=== PATIENT | male | born 1965 | race Caucasian/White ===

== ENCOUNTER 2018-01-16 10:19 | Emergency (ER) | payer OTHER ==
[~2018-01-16] VITALS: Ht 170.2 cm; Wt 95.0 kg
[2018-01-16 10:26] VITALS: BP 161/71; PULSE 71; RESP 18; TEMP 97.4; O2SAT 99
[2018-01-16] MEDS ORDERED: ASPI81CH6 CHEW (10:42)
[2018-01-16] MEDS ORDERED: OMEP20TA93 PO (10:42)
[2018-01-16] MEDS ORDERED: FINA5TAB2 PO (10:42)
[2018-01-16] MEDS ORDERED: FENO145T2 PO (10:42)
[2018-01-16] MEDS ORDERED: ATOR40TA16 PO (10:42)
[2018-01-16] MEDS ORDERED: CIAL5TAB PO (10:42)
[2018-01-16] MEDS ORDERED: ONDANSETRON HCL 4 MG/2 ML VIAL IV PUSH ONE (10:45)
[2018-01-16] MEDS ORDERED: KETOROLAC TROMETHAMINE 30 MG/ML (IVP) VIAL IV PUSH ONE (10:45)
[2018-01-16] MEDS ORDERED: SODIUM CHLOR 0.9% 1000 ML INJ 1,000 ML IV ONE (10:45)
[2018-01-16] MEDS ORDERED: HYDROmorphone HCL PF 2 MG/ML VIAL IV PUSH ONE (10:45)
--- NOTE | 2018-01-16 10:49 | PD ---
HPI Chief Complaint: Flank/Kidney Pain Time Seen by Provider: 10:38 Travel History International Travel<30 days: No Contact w/Intl Traveler<30days: No Traveled to known affect area: No History of Present Illness HPI This 52-year-old male is complaining of left flank pain. He says the pain started this morning. Is originally in the left midabdomen and is moved into the flank. The pain is quite severe. He got sweaty with the pain and has been nauseated. He had a kidney stone about 6 years ago and said the pain is somewhat similar. He has no history of abdominal surgery. He did notice some blood in his urine a couple of days ago. Patient states that he has an enlarged prostate and has had recurrent urinary tract infections. PFSH Past Medical History High Cholesterol: Yes GERD: Yes Influenza Vaccination: Yes ?: Not Social History Alcohol Use: No Tobacco Use: No Substance Use: No Allergies-Medications (Allergen,Severity, Reaction): Coded Allergies: No Known Allergies (Verified Allergy, Unknown, 01/16/18) Reported Meds & Prescriptions Reported Meds & Active Scripts Active Reported Finasteride 5 Mg Tab 5 Mg PO DAILY Do not crush. Aspirin Low Dose (Aspirin) 81 Mg Chew 81 Mg CHEW DAILY Omeprazole 20 Mg Tab 20 Mg PO DAILY Cialis (Tadalafil) 5 Mg Tab 5 Mg PO HS Do not exceed 1 dose/day. Atorvastatin (Atorvastatin Calcium) 40 Mg Tab 40 Mg PO HS Fenofibrate 145 Mg Tab 145 Mg PO DAILY Review of Systems Except as stated in HPI: all other systems reviewed are Neg General / Constitutional: No: Fever, Chills Eyes: No: Diploplia, Blurred Vision HENT: No: Headaches, Vertigo Cardiovascular: No: Chest Pain or Discomfort, Palpitations Respiratory: No: Cough, Shortness of Breath Gastrointestinal: Positive: Nausea, Abdominal Pain, No: Vomiting Genitourinary: Positive: Hematuria, Flank Pain Skin: No Rash Neurologic: No: Weakness, Dizziness Endocrine: No: Heat Intolerance, Cold Intolerance Hematologic/Lymphatic: No: Easy Bruising Physical Exam Narrative GENERAL: Well-developed male SKIN: Focused skin assessment warm/dry. HEAD: Atraumatic. Normocephalic. EYES: Pupils equal and round. No scleral icterus. No injection or drainage. ENT: No nasal bleeding or discharge. Mucous membranes pink and moist. NECK: Trachea midline. No JVD. CARDIOVASCULAR: Regular rate and rhythm. No murmur appreciated. RESPIRATORY: No accessory muscle use. Clear to auscultation. Breath sounds equal bilaterally. GASTROINTESTINAL: Abdomen soft, non-tender, nondistended. Hepatic and splenic margins not palpable. There is some left CVA tenderness MUSCULOSKELETAL: No obvious deformities. No clubbing. No cyanosis. No edema. NEUROLOGICAL: Awake and alert. No obvious cranial nerve deficits. Motor grossly within normal limits. Normal speech. PSYCHIATRIC: Appropriate mood and affect; insight and judgment normal. Data Data Last Documented VS Vital Signs Date Time Temp Pulse Resp B/P (MAP) Pulse Ox O2 Delivery O2 Flow Rate FiO2 01/16/18 11:55 91 18 136/71 (92) 97 01/16/18 11:06 Room Air 01/16/18 10:26 97.4 Orders Orders Complete Blood Count With Diff (01/16/18 10:42) Basic Metabolic Panel (Bmp) (01/16/18 10:42) Urinalysis - C+S If Indicated (01/16/18 10:42) Sodium Chlor 0.9% 1000 Ml Inj (Ns 1000 M (01/16/18 10:45) Ketorolac Inj (Toradol Inj) (01/16/18 10:45) Ondansetron Inj (Zofran Inj) (01/16/18 10:45) Hydromorphone Pf Inj (Dilaudid Pf Inj) (01/16/18 10:45) Ct Abd/Pel W/O Iv Contrast (01/16/18 11:13) Hydromorphone Pf Inj (Dilaudid Pf Inj) (01/16/18 11:15) Urine Culture (01/16/18 10:48) Ceftriaxone Inj (Rocephin Inj) (01/16/18 11:45) Labs Laboratory Tests Test 01/16/18 10:48 01/16/18 10:58 Urine Collection Type CLEAN CATCH Urine Color STRAW Urine Turbidity SL CLOUDY Urine pH 6.0 Urine Specific [place] 1.020 Urine Protein NEG mg/dL Urine Glucose (UA) NEG mg/dL Urine Ketones NEG mg/dL Urine Occult Blood TRACE Urine Nitrite POS Urine Bilirubin NEG Urine Urobilinogen 0.2 MG/DL Urine Leukocyte Esterase MOD Urine WBC 50-99 /hpf Urine WBC Clumps MOD Urine Squamous Epithelial Cells 0-5 /hpf Urine Bacteria MANY /hpf Microscopic Urinalysis Comment CULTURE INDICATED White Blood Count 15.1 TH/MM3 Red Blood Count 4.72 MIL/MM3 Hemoglobin 14.3 GM/DL Hematocrit 42.7 % Mean Corpuscular Volume 90.4 FL Mean Corpuscular Hemoglobin 30.3 PG Mean Corpuscular Hemoglobin Concent 33.5 % Red Cell Distribution Width 13.1 % Platelet Count 436 TH/MM3 Mean Platelet Volume 7.9 FL Neutrophils (%) (Auto) 80.9 % Lymphocytes (%) (Auto) 10.9 % Monocytes (%) (Auto) 7.4 % Eosinophils (%) (Auto) 0.5 % Basophils (%) (Auto) 0.3 % Neutrophils # (Auto) 12.3 TH/MM3 Lymphocytes # (Auto) 1.6 TH/MM3 Monocytes # (Auto) 1.1 TH/MM3 Eosinophils # (Auto) 0.1 TH/MM3 Basophils # (Auto) 0.0 TH/MM3 CBC Comment AUTO DIFF Blood Urea Nitrogen 16 MG/DL Creatinine 1.50 MG/DL Random Glucose 139 MG/DL Calcium Level 9.3 MG/DL Sodium Level 137 MEQ/L Potassium Level 4.1 MEQ/L Chloride Level 104 MEQ/L Carbon Dioxide Level 24.2 MEQ/L Anion Gap 9 MEQ/L Estimat Glomerular Filtration Rate 50 ML/MIN MDM Medical Decision Making Medical Screen Exam Complete: Yes Emergency Medical Condition: Yes Medical Record Reviewed: Yes Differential Diagnosis Differential includes pyelonephritis, musculoskeletal pain, renal colic Narrative Course White count is 15,000. CT scan of the abdomen and pelvis shows hydronephrosis of the left collecting system. There is a 1 mm stone in the left UPJ causing hydronephrosis. Urinalysis shows 50-99 white cells. There is a's 8 mm stone on the left side of the bladder which I suspect may have been the stone causing him pain. On returning from CT the patient reports much improvement in his pain. Diagnosis Primary Impression: Renal colic on left side Additional Impression: UTI (urinary tract infection) Scripts Oxycodone-Acetaminophen (Percocet) 10-325 mg Tab 1 TAB PO Q4H Y for PAIN, #12 TAB 0 Refills Prov: Amando Segundo MD 01/16/18 Sulfamethoxazole-Trimethoprim (Bactrim DS) 800-160 Mg Tab 1 TAB PO BID for Infection, #20 TAB 0 Refills Prov: Amando Segundo MD 01/16/18 Disposition: 01 DISCHARGE HOME Condition: Stable Amando Segundo MD Jan 16, 2018 10:49
[2018-01-16 11:04] LABS: BILIRUBIN, URINE NEG (NEG); BLOOD, URINE TRACE (NEG); GLUCOSE,URINE NEG (NEG); KETONE, URINE NEG (NEG); NITRITE,URINE POS (NEG); URINE LEUKOCYTE ESTERASE MOD (NEG)
[2018-01-16 11:06] VITALS: BP 183/100; PULSE 80; RESP 18; O2SAT 100
[2018-01-16 11:06] LABS: URINE COLOR STRAW (YELLW/STRAW)
[2018-01-16] MEDS ORDERED: HYDROmorphone HCL PF 1 MG/ML VIAL IV PUSH ONE (11:15)
[2018-01-16 11:20] LABS: AUTOMATED NEUTROPHIL # 12.3 TH/MM3 (1.8-7.7); BASOPHIL % 0.3 % (0.0-2.0); EOSINOPHIL # 0.1 TH/MM3 (0-0.4); EOSINOPHIL % 0.5 % (0.0-4.0); HEMATOCRIT 42.7 % (39.0-51.0); HEMOGLOBIN 14.3 GM/DL (13.0-17.0); LYMPH % 10.9 % (9.0-44.0); LYMPHOCYTE # 1.6 TH/MM3 (1.0-4.8); MEAN CELL VOLUME 90.4 FL (80.0-100.0); MEAN CORPUSCULAR HEMOGLOBIN 30.3 PG (27.0-34.0); MEAN CORPUSCULAR HGB CONC 33.5 % (32.0-36.0); MEAN PLATELET VOLUME 7.9 FL (7.0-11.0); MONO % 7.4 % (0.0-8.0); MONOCYTE # 1.1 TH/MM3 (0-0.9); NEUT % 80.9 % (16.0-70.0); PLATELET COUNT 436 TH/MM3 (150-450); RED BLOOD COUNT 4.72 MIL/MM3 (4.50-5.90); RED CELL DISTRIBUTION WIDTH 13.1 % (11.6-17.2); WHITE BLOOD COUNT 15.1 TH/MM3 (4.0-11.0)
[2018-01-16 11:21] LABS: SQUAMOUS EPITHELIAL CELL URINE 0-5 /hpf (0-5); WHITE BLOOD CELL CLUMPS MOD
[2018-01-16 11:22] LABS: BACTERIA, URINE MANY /hpf
[2018-01-16 11:36] LABS: CALCIUM 9.3 MG/DL (8.5-10.1)
[2018-01-16 11:37] LABS: BICARBONATE 24.2 MEQ/L (21.0-32.0)
[2018-01-16 11:40] LABS: CREATININE 1.5 MG/DL (0.60-1.30)
[2018-01-16] MEDS ORDERED: cefTRIAXone INJ 2,000 MG in SODIUM CHLORIDE 0.9% INJ 100 ML IV ONE (11:45)
[2018-01-16 11:55] VITALS: BP 136/71; PULSE 91; RESP 18; O2SAT 97
--- NOTE | 2018-01-16 11:55 | RADRPT ---
EXAM DATE/TIME: 01/16/2018 11:33 [facility] COMPARISON: No previous studies available for comparison. INDICATIONS : Left flank pain. ORAL CONTRAST: No oral contrast ingested. RADIATION DOSE: 23.23 CTDIvol (mGy) MEDICAL HISTORY : Hypercholesterolemia. Gastroesophageal reflux disease. SURGICAL HISTORY : None. ENCOUNTER: Initial ACUITY: 2 days PAIN SCALE: 5/10 LOCATION: Left flank TECHNIQUE: Volumetric scanning of the abdomen and pelvis was performed. Using automated exposure control and ad justment of the mA and/or kV according to patient size, radiation dose was kept as low as reasonably achievable to obtain optimal diagnostic quality images. DICOM format image data is available electro nically for review and comparison. The lack of IV contrast limits the diagnosis for certain organ pa thology. FINDINGS: LOWER LUNGS: The visualized lower lungs are clear. LIVER: Homogeneous density without lesion. There is diffuse fatty infiltration throughout the liver. There is no dilation of the biliary tree. No calcified gallstones. SPLEEN: Normal size without lesion. PANCREAS: Within normal limits. KIDNEYS: Normal in size and shape. . There are bilateral calcified renal stones. There is a stone measuring 1. 1 cm in the lower pole the right kidney not causing obstruction. There is a stone measuring 7 mm in t he lower pole of the left kidney not causing obstruction. There is hydronephrosis of the left kidney with a tiny 1 mm stone at the left UPJ. No right sided hydronephrosis. The ureters are nondilated. ADRENAL GLANDS: Within normal limits. VASCULAR: There is no aortic aneurysm. BOWEL/MESENTERY: The stomach, small bowel, and colon demonstrate no acute abnormality. There is no free intraperitone al air or fluid. Scattered diverticulosis of the descending and sigmoid colon without inflammatory ch anges. ABDOMINAL WALL: Within normal limits. RETROPERITONEUM: There is no lymphadenopathy. BLADDER: No wall thickening or mass. There is a stone in the base of the urinary bladder on the left side tho uring 8 mm. REPRODUCTIVE: The prostate gland measures 5.3 cm. INGUINAL: There is no lymphadenopathy or hernia. MUSCULOSKELETAL: Within normal limits for patient age. CONCLUSION: 1. There is hydronephrosis of the left collecting system. There is a 1 mm stone in the left UPJ causi ng hydronephrosis. 2. There are bilateral nonobstructing kidney stones in the lower pole of both kidneys. 3. There is an 8 mm stone in the urinary bladder on the left side. 4. Diffuse enlargement of the prostate gland. 5. Scattered diverticulosis of the descending and sigmoid colon. 6. Diffuse fatty infiltration of the liver. Aidan Tran MD on January 16, 2018 at 11:47 Board Certified Radiologist. This report was verified electronically.
[2018-01-16] MEDS ORDERED: PERC10TA27 PO (12:09)
[2018-01-16] MEDS ORDERED: BACT800T5 PO (12:09)
[2018-01-16 12:32] VITALS: BP 135/83; PULSE 89; RESP 16; O2SAT 98
== END 2018-01-16 12:58 | disposition home or self-care (01) ==
LOC: PHED 10:19
DX: N13.2 Hydronephrosis with renal and ureteral calculous obstruction (principal); N39.0 Urinary tract infection, site not specified; D72.829 Elevated white blood cell count, unspecified; B96.20 Unspecified Escherichia coli [E. coli] as the cause of diseases classified elsewhere; N40.0 Benign prostatic hyperplasia without lower urinary tract symptoms; K21.9 Gastro-esophageal reflux disease without esophagitis; E78.00 Pure hypercholesterolemia, unspecified; Z87.442 Personal history of urinary calculi; Z87.440 Personal history of urinary (tract) infections
CPT/HCPCS: 74176; 80048; 81001; 85025; 87077; 87086; 87186; 96361; 96365; 96375; 99285; J0696; J1170; J1885; J2405; J7030

== ENCOUNTER 2018-04-14 20:26 | Inpatient (IN) | payer OTHER ==
[~2018-04-14] VITALS: Ht 170.2 cm; Wt 89.8 kg
[~2018-04-14 20:26] MED LIST: ASPI81CH6 CHEW; ATOR40TA16 PO; BACT800T5 PO; CIAL5TAB PO; FENO145T2 PO; FINA5TAB2 PO; OMEP20TA93 PO; PERC10TA27 PO
[2018-04-14 20:32] VITALS: BP 141/71; PULSE 121; RESP 22; TEMP 103.1; O2SAT 95
[2018-04-14 20:51] VITALS: O2SAT 98
[2018-04-14] MEDS ORDERED: ACETAMINOPHEN 500 MG CPLT PO ONE (21:00)
[2018-04-14] MEDS: SODIUM CHLOR 0.9% 1000 ML INJ 1,000 ML IV SCH ×2 (21:06→21:26)
[2018-04-14 21:11] LABS: CHLORIDE 110 MEQ/L (98-107); SODIUM (NA) 141 MEQ/L (136-145)
[2018-04-14 21:12] LABS: HEMOGLOBIN 12.3 GM/DL (13.0-17.0); MEAN CELL VOLUME 89.7 FL (80.0-100.0); MEAN CORPUSCULAR HEMOGLOBIN 31.5 PG (27.0-34.0); MEAN CORPUSCULAR HGB CONC 35.1 % (32.0-36.0); MEAN PLATELET VOLUME 9.1 FL (7.0-11.0); PLATELET COUNT 282 TH/MM3 (150-450); RED CELL DISTRIBUTION WIDTH 12.6 % (11.6-17.2); WHITE BLOOD COUNT 9.6 TH/MM3 (4.0-11.0)
[2018-04-14 21:14] LABS: CALCIUM 7.7 MG/DL (8.5-10.1)
[2018-04-14 21:15] LABS: ALBUMIN 2.6 GM/DL (3.4-5.0); BICARBONATE 20.1 MEQ/L (21.0-32.0); BLOOD UREA NITROGEN 28 MG/DL (7-18); GLUCOSE,RANDOM 147 MG/DL (74-106)
[2018-04-14 21:18] LABS: ALT (GPT) 36 U/L (12-78); AST (GOT) 33 U/L (15-37); GLOMERULAR FILTRATION RATE 40 ML/MIN (>89)
[2018-04-14 21:20] LABS: TOTAL BILIRUBIN ADULT 0.4 MG/DL (0.2-1.0); TOTAL PROTEIN 6.4 GM/DL (6.4-8.2)
[2018-04-14 21:21] LABS: ALKALINE PHOSPHATASE 64 U/L (45-117)
--- NOTE | 2018-04-14 21:47 | RADRPT ---
EXAM DATE: 04/14/2018 9:25 PM EDT AGE/SEX: 52 years / Male INDICATIONS: Fever. Weakness. CLINICAL DATA: This is the patient's initial encounter. Patient reports that signs and symptoms have been present for 4 - 6 days and indicates a pain score of 5/10. MEDICAL/SURGICAL HISTORY: None. None. COMPARISON: No prior exams available for comparison. FINDINGS: PA and lateral views of the chest demonstrate the lungs to be symmetrically aerated without evidence of mass, infiltrate or effusion. The cardiomediastinal contours are unremarkable. Osseous structures are intact. CONCLUSION: No active disease. Calcified granulomata in both lungs. Electronically signed by: Sulaiman Houston MD 04/14/2018 9:45 PM EDT
[2018-04-14 21:48] LABS: TROPONIN I LESS THAN 0.02 NG/ML (0.02-0.05)
[2018-04-14 21:49] VITALS: BP 93/60; PULSE 99; RESP 18; TEMP 100.7; O2SAT 96
--- NOTE | 2018-04-14 21:49 | PD ---
HPI Chief Complaint: Fever Time Seen by Provider: 20:56 Travel History International Travel<30 days: No Contact w/Intl Traveler<30days: No Traveled to known affect area: No History of Present Illness HPI The patient is a 52-year-old male who complains of fevers, shakes, chills, lightheadedness without vertigo since last night. The patient states he has a feeling of needles on his chest. He denies any cough or shortness of breath. He denies any diarrhea. He denies any nausea or vomiting. He does have a sore throat. He denies any syncopal or near syncopal spells. PFSH Past Medical History High Cholesterol: Yes GERD: Yes Tetanus Vaccination: < 5 Years Influenza Vaccination: Yes Social History Alcohol Use: No Tobacco Use: No Substance Use: No Allergies-Medications (Allergen,Severity, Reaction): Coded Allergies: No Known Allergies (Verified Allergy, Unknown, 04/14/18) Reported Meds & Prescriptions Reported Meds & Active Scripts Active Reported Finasteride 5 Mg Tab 5 Mg PO DAILY Do not crush. Aspirin Low Dose (Aspirin) 81 Mg Chew 81 Mg CHEW DAILY Cialis (Tadalafil) 5 Mg Tab 5 Mg PO HS Do not exceed 1 dose/day. Atorvastatin (Atorvastatin Calcium) 40 Mg Tab 40 Mg PO HS Fenofibrate 145 Mg Tab 145 Mg PO DAILY Review of Systems Except as stated in HPI: all other systems reviewed are Neg Physical Exam Narrative GENERAL: The patient is alert, oriented 3 in no respiratory distress. His vital signs show temperature 103.1, heart rate 121, respirations 22 with blood pressure 141/71 and oximetry 95%. SKIN: Focused skin assessment warm/dry. HEAD: Atraumatic. Normocephalic. EYES: Pupils equal and round. No scleral icterus. No injection or drainage. ENT: No nasal bleeding or discharge. Mucous membranes pink and moist. The throat is clear without erythema, exudate or abscess. Tympanic membranes are clear. NECK: Trachea midline. No JVD. There is no meningismus present. CARDIOVASCULAR: Regular rate and sinus tachycardia rhythm. No murmur appreciated. RESPIRATORY: No accessory muscle use. Clear to auscultation. Breath sounds equal bilaterally. GASTROINTESTINAL: Abdomen soft, non-tender, nondistended. Hepatic and splenic margins not palpable. MUSCULOSKELETAL: No obvious deformities. No clubbing. No cyanosis. No edema. NEUROLOGICAL: Awake and alert. No obvious cranial nerve deficits. Motor grossly within normal limits. Normal speech. PSYCHIATRIC: Appropriate mood and affect; insight and judgment normal. Data Data Last Documented VS Vital Signs Date Time Temp Pulse Resp B/P (MAP) Pulse Ox O2 Delivery O2 Flow Rate FiO2 04/14/18 23:04 94 18 96 Room Air 04/14/18 23:04 98.6 126/64 (84) Orders Orders Sepsis Workup Initiated (04/14/18 ) Complete Blood Count With Diff (04/14/18 20:49) Comprehensive Metabolic Panel (04/14/18 20:49) Lactic Acid Sepsis Protocol (04/14/18 20:49) Blood Culture (04/14/18 20:49) Iv Access Insert/Monitor (04/14/18 20:49) Oxygen Administration (04/14/18 20:49) Oximetry (04/14/18 20:49) Urinalysis - C+S If Indicated (04/14/18 20:53) Influenzae A/B Antigen (04/14/18 20:53) Chest, Pa & Lat (04/14/18 20:56) Sodium Chlor 0.9% 1000 Ml Inj (Ns 1000 M (04/14/18 21:00) Acetaminophen (Tylenol) (04/14/18 21:00) Troponin I (04/14/18 20:50) Group A Rapid Strep Screen (04/14/18 21:49) Urine Culture (04/14/18 21:14) Strep Culture (Group A) (04/14/18 21:50) Ceftriaxone Inj (Rocephin Inj) (04/15/18 00:00) Admit To Inpatient (04/15/18 ) Vital Signs (Adult) Q4H (04/15/18 00:03) Activity Oob Ad Anika (04/15/18 00:03) Data Migration Consultant / Telemetry .CONTINUOUS (04/15/18 00:03) Intake + Output ERIK.QSHIFT (04/15/18 00:03) Diet Regular Basic (04/15/18 Breakfast) Sodium Chlor 0.9% 1000 Ml Inj (Ns 1000 M (04/15/18 00:03) Sodium Chloride 0.9% Flush (Ns Flush) (04/15/18 00:15) Sodium Chloride 0.9% Flush (Ns Flush) (04/15/18 09:00) Metoclopramide Inj (Reglan Inj) (04/15/18 00:15) Comprehensive Metabolic Panel (04/15/18 06:00) Complete Blood Count With Diff (04/15/18 06:00) Scd Bilateral/Knee High ERIK.BID (04/15/18 00:03) [place] Bilateral/Knee High ERIK.QSHIFT (04/15/18 00:05) Acetaminophen (Tylenol) (04/15/18 00:15) Acetamin-Hydrocod 325-5 Mg ([place] 5-325 (04/15/18 00:15) Morphine Inj (Morphine Inj) (04/15/18 00:15) Docusate Sodium-Senna (Jannie-Colace) (04/15/18 09:00) Magnesium Hydroxide Liq (Milk Of Magnesi (04/15/18 00:15) Sennosides (Senokot) (04/15/18 00:15) Bisacodyl Supp (Dulcolax Supp) (04/15/18 00:15) Lactulose Liq (Lactulose Liq) (04/15/18 00:15) Inpatient Certification (04/15/18 ) Ceftriaxone Inj (Rocephin Inj) (04/15/18 23:00) Atorvastatin (Lipitor) (04/15/18 21:00) Fenofibrate (Tricor) (04/15/18 09:00) (Nf) Tadalafil (Cialis) (04/15/18 21:00) Admit Order (Ed Use Only) (04/15/18 00:06) Labs Laboratory Tests Test 04/14/18 20:50 04/14/18 20:58 04/14/18 21:14 White Blood Count 9.6 TH/MM3 Red Blood Count 3.90 MIL/MM3 Hemoglobin 12.3 GM/DL Hematocrit 35.0 % Mean Corpuscular Volume 89.7 FL Mean Corpuscular Hemoglobin 31.5 PG Mean Corpuscular Hemoglobin Concent 35.1 % Red Cell Distribution Width 12.6 % Platelet Count 282 TH/MM3 Mean Platelet Volume 9.1 FL CBC Comment AUTO DIFF Differential Total Cells Counted 100 Neutrophils % (Manual) 87 % Band Neutrophils % 1 % Lymphocytes % 8 % Monocytes % 2 % Basophils % 1 % Neutrophils # (Manual) 8.5 TH/MM3 Metamyelocytes 1 % Differential Comment FINAL DIFF MANUAL Platelet Estimate NORMAL Platelet Morphology Comment NORMAL Red Cell Morphology Comment NORMAL Blood Urea Nitrogen 28 MG/DL Creatinine 1.80 MG/DL Random Glucose 147 MG/DL Total Protein 6.4 GM/DL Albumin 2.6 GM/DL Calcium Level 7.7 MG/DL Alkaline Phosphatase 64 U/L Aspartate Amino Transf (AST/SGOT) 33 U/L Alanine Aminotransferase (ALT/SGPT) 36 U/L Total Bilirubin 0.4 MG/DL Sodium Level 141 MEQ/L Potassium Level 3.5 MEQ/L Chloride Level 110 MEQ/L Carbon Dioxide Level 20.1 MEQ/L Anion Gap 11 MEQ/L Estimat Glomerular Filtration Rate 40 ML/MIN Troponin I LESS THAN 0.02 NG/ML Lactic Acid Level 1.4 mmol/L Urine Color YELLOW Urine Turbidity CLOUDY Urine pH 6.0 Urine Specific [place] 1.020 Urine Protein 100 mg/dL Urine Glucose (UA) NEG mg/dL Urine Ketones NEG mg/dL Urine Occult Blood MOD Urine Nitrite POS Urine Bilirubin NEG Urine Urobilinogen 0.2 MG/DL Urine Leukocyte Esterase LARGE Urine RBC 4-9 /hpf Urine WBC INNUM /hpf Urine Squamous Epithelial Cells 0-5 /hpf Urine Bacteria MANY /hpf Microscopic Urinalysis Comment CULTURE INDICATED MDM Medical Decision Making Medical Screen Exam Complete: Yes Emergency Medical Condition: Yes Medical Record Reviewed: Yes Interpretation(s) The CBC shows a hemoglobin of 12.3 and hematocrit of 35 but is otherwise normal. The white count is only 9600. The complete metabolic profile shows a bicarb of 20.1, BUN 28, creatinine 1.8, GFR 40, glucose 147, calcium 7.7 and albumin of 2.6 but is otherwise normal. The troponin I is normal and the lactic acid is normal at 1.4. The PA and lateral chest x-ray shows calcified granulomata in both lungs but no active disease. The influenza A/B antigen is negative for flu a and flu B antigen. The urinalysis shows cloudy turbidity, moderate blood, positive nitrite, large leukocyte Estrace, innumerable white cells with 49 red cells and many bacteria and culture is indicated. The strep screen is negative for group A strep antigen. Differential Diagnosis Sepsis, viral syndrome, strep pharyngitis, pneumonia, bronchitis, intestinal infection, electrolyte disorder, dehydration, flu syndrome Narrative Course The patient it is a sepsis protocol. His source is the urine. He will be admitted to [facility] by Dr. Mcguire,, I discussed the patient with hER. Sepsis Criteria SIRS Criteria (2 or more): Temp > 100.9 or < 96.8, Heart rate over 90, RR > 20 or PaCO2 < 32 Sepsis Criteria (SIRS+source): Infect source susp/known Criteria Outcome: Meets sepsis criteria Diagnosis Primary Impression: Sepsis Additional Impression: Pyelonephritis Admitting Information Admitting Physician Requests: Admit Tesfaye Jorge MD Apr 14, 2018 21:49
[2018-04-14 21:55] LABS: BILIRUBIN, URINE NEG (NEG); BLOOD, URINE MOD (NEG); GLUCOSE,URINE NEG (NEG); KETONE, URINE NEG (NEG); NITRITE,URINE POS (NEG); URINE COLOR YELLOW (YELLW/STRAW); URINE LEUKOCYTE ESTERASE LARGE (NEG)
[2018-04-14 22:08] LABS: BANDS 1 % (0-6); BASOPHILS 1 % (0-2); LYMPHOCYTES 8 % (9-44); METAMYELOCYTES 1 % (0-1); MONOCYTES 2 % (0-8); NEUTROPHIL # MANUAL DIFF 8.5 TH/MM3 (1.8-7.7); POLYS (SEG NEUTROPHILS) 87 % (16-70)
[2018-04-14 22:13] LABS: SQUAMOUS EPITHELIAL CELL URINE 0-5 /hpf (0-5); WBC, URINE INNUM /hpf (0-5)
[2018-04-14 22:14] LABS: BACTERIA, URINE MANY /hpf
[2018-04-14 23:04] VITALS: BP 126/64; PULSE 94; RESP 18; TEMP 98.6; O2SAT 96
[2018-04-15] VITALS (10 sets, daily range): BP systolic 109–160; BP diastolic 60–78; PULSE 69–89; RESP 16–20; TEMP 96.2–97.8; O2SAT 92–99
[2018-04-15] MEDS ORDERED: cefTRIAXone INJ 1,000 MG in SODIUM CHLORIDE 0.9% INJ 100 ML IV ONE ×2
[2018-04-15] MEDS ORDERED: SODIUM CHLOR 0.9% 1000 ML INJ 1,000 ML IV SCH (00:03)
[2018-04-15] MEDS ORDERED: LACTULOSE SYRUP 20 GM/30 ML CUP PO PRN (00:15)
[2018-04-15] MEDS ORDERED: METOCLOPRAMIDE HCL 10 MG/2 ML VIAL IV PUSH PRN (00:15)
[2018-04-15] MEDS ORDERED: MORPHINE SULFATE 2 MG/ML SYRINGE IV PUSH PRN (00:15)
[2018-04-15] MEDS ORDERED: BISACODYL 10 MG SUPP RECTAL PRN (00:15)
[2018-04-15] MEDS ORDERED: MAGNESIUM HYDROXIDE SUSP 30 ML CUP PO PRN (00:15)
[2018-04-15] MEDS ORDERED: SENNOSIDES 8.6 MG TAB PO PRN (00:15)
[2018-04-15] MEDS: ACETAMINOPHEN/HYDROcodone 325 MG/5 MG TAB PO PRN ×3 (02:10→18:30)
--- NOTE | 2018-04-15 07:29 | HHI.HP ---
[facility] Diogeens Viera MD Admission Diagnosis Sepsis, pyelonephritis Diagnoses: (1) Sepsis (2) Pyelonephritis Chief Complaint: Fever Chills Travel History International Travel<30 Days: No Contact w/Intl Traveler <30 Da: No Traveled to Known Affected Are: No History of Present Illness This is a pleasant 52-year-old male patient with a known medical history of hyperlipidemia and GERD and enlarged prostate who presented to the ED with complaints of fevers, shakes, chills and lightheadedness. Patient states that last evening he took his temp which was reportedly 101 at home. He does admit to associated poor appetite. He states that he felt intermittent hot and cold with rigors as well as associated chest tightness characterized as feeling like "needles"in his midsternal chest, these lasted a couple minutes and then went away. He denies any recent cough or shortness of breath. Denies any bowel pain , nausea, vomiting, diarrhea or dysuria. He does admit to a sore throat. Denies any recent antibiotic use. Denies any sick contacts. Patient did undergo a cardiac stress test 5 years ago which was reportedly negative. PCP is Dr. Viera. Denies any changes to his medicines. Patient is from [place] , moved here in September 2016, prior to this he was seeing a urologist for enlarged prostate as well as history of kidney stones. He has not established with a urologist in town here. Last report of kidney stone was last year and passed on his own. Review of Systems Constitutional: COMPLAINS OF: Diaphoretic episodes, Fatigue, Fever, Chills, DENIES: Dizziness Endocrine: DENIES: Polydipsia, Polyuria Ears, nose, mouth, throat: DENIES: Vertigo Respiratory: DENIES: Cough, Sputum production, Shortness of breath Cardiovascular: COMPLAINS OF: Chest pain Gastrointestinal: DENIES: Abdominal pain, Black stools, Bloody stools, Constipation, Diarrhea Musculoskeletal: DENIES: Joint pain Hematologic/lymphatic: DENIES: Bruising Immunologic/allergic: DENIES: Eczema Neurologic: DENIES: Abnormal gait Psychiatric: DENIES: Anxiety Except as stated in HPI: all other systems reviewed are Neg Past Family Social History Past Medical History Hyperlipidemia GERD Enlarged prostate History of kidney stones Past Surgical History Left knee ACL replacement Reported Medications Active Reported Finasteride 5 Mg Tab 5 Mg PO DAILY Do not crush. Aspirin Low Dose (Aspirin) 81 Mg Chew 81 Mg CHEW DAILY Cialis (Tadalafil) 5 Mg Tab 5 Mg PO HS Do not exceed 1 dose/day. Atorvastatin (Atorvastatin Calcium) 40 Mg Tab 40 Mg PO HS Fenofibrate 145 Mg Tab 145 Mg PO DAILY Allergies: Coded Allergies: No Known Allergies (Verified Allergy, Unknown, 04/14/18) Active Ordered Medications Current Medications Medications (Trade) Dose Ordered Sig/Gonzales Route Start Time Stop Time Status Last Admin (NS Flush) 2 ml UNSCH PRN IV FLUSH 04/15/18 00:15 (NS Flush) 2 ml BID IV FLUSH 04/15/18 09:00 (Reglan Inj) 5 mg Q6H PRN IV PUSH 04/15/18 00:15 (Tylenol) 650 mg Q6H PRN PO 04/15/18 00:15 ([place] 5-325 Mg) 1 tab Q4H PRN PO 04/15/18 00:15 04/15/18 02:10 (Morphine Inj) 2 mg Q3H PRN IV PUSH 04/15/18 00:15 (Jannie-Colace) 1 tab BID PO 04/15/18 09:00 (Milk Of Magnesia Liq) 30 ml Q12H PRN PO 04/15/18 00:15 (Senokot) 17.2 mg Q12H PRN PO 04/15/18 00:15 (Dulcolax Supp) 10 mg DAILY PRN RECTAL 04/15/18 00:15 (Lactulose Liq) 30 ml DAILY PRN PO 04/15/18 00:15 Ceftriaxone Sodium 2000 mg/ Sodium Chloride 100 ml @ 200 mls/hr Q24H IV 04/15/18 23:00 (Lipitor) 40 mg HS PO 04/15/18 21:00 (Tricor) 145 mg DAILY PO 04/15/18 09:00 04/15/18 08:01 Patient Own Medication PT OWN MED: Tadala... HS PO 04/15/18 21:00 Future Hold Sodium Chloride 1,000 ml @ 100 mls/hr Q10H IV 04/15/18 08:00 04/15/18 08:02 (Proscar) 5 mg DAILY PO 04/15/18 09:00 04/15/18 08:02 Family History Mother had Alzheimers. Father had a history of CAD and [place] at the age 7070 years old. Social History Denies any tobacco abuse, quit 4 years ago and prior to that he smoked since his teen years. Denies any alcohol and illicit drug use. Physical Exam Vital Signs Vital Signs Date Time Temp Pulse Resp B/P (MAP) Pulse Ox O2 Delivery O2 Flow Rate FiO2 04/15/18 04:00 97.3 69 20 160/74 (102) 92 04/15/18 01:00 97.8 86 20 112/60 (77) 98 04/15/18 00:48 86 18 109/70 (83) 97 04/15/18 00:10 89 18 119/63 (81) 97 Room Air 04/14/18 23:04 94 18 96 Room Air 04/14/18 23:04 98.6 94 18 126/64 (84) 96 Room Air 04/14/18 21:49 100.7 99 18 93/60 (71) 96 Room Air 04/14/18 20:51 98 Room Air 04/14/18 20:41 Room Air 04/14/18 20:36 (94) 04/14/18 20:32 103.1 121 22 141/71 (94) 95 Room Air 04/14/18 20:32 103.1 121 22 141/71 (94) 95 Room Air Physical Exam GENERAL: Well-developed, well-nourished patient in [facility]. SKIN: Warm and dry. No rash. HEAD: Normocephalic. Atraumatic. EYES: Pupils equal and round. No scleral icterus. No injection or drainage. ENT: No nasal bleeding or discharge. Mucous membranes pink and moist. NECK: Supple. Trachea midline. CARDIOVASCULAR: Regular rate and rhythm. S1, S2 noted. No murmur appreciated. Mild reproducible midsternal CP. RESPIRATORY: No accessory muscle use. Clear to auscultation. Breath sounds equal bilaterally. GASTROINTESTINAL: Abdomen soft, non-tender, nondistended. Normoactive bowel sounds x4. MUSCULOSKELETAL: No obvious deformities. Extremities without clubbing, cyanosis , or edema. NEUROLOGICAL: Awake and alert. No obvious cranial nerve deficits. Motor grossly within normal limits. 5/5 muscle strength in bilateral upper and lower extremities. Normal speech. PSYCHIATRIC: Appropriate mood and affect; insight and judgment normal. Laboratory Laboratory Tests Test 04/14/18 20:50 04/14/18 20:58 04/14/18 21:14 White Blood Count 9.6 Red Blood Count 3.90 Hemoglobin 12.3 Hematocrit 35.0 Mean Corpuscular Volume 89.7 Mean Corpuscular Hemoglobin 31.5 Mean Corpuscular Hemoglobin Concent 35.1 Red Cell Distribution Width 12.6 Platelet Count 282 Mean Platelet Volume 9.1 CBC Comment AUTO DIFF Differential Total Cells Counted 100 Neutrophils % (Manual) 87 Band Neutrophils % 1 Lymphocytes % 8 Monocytes % 2 Basophils % 1 Neutrophils # (Manual) 8.5 Metamyelocytes 1 Differential Comment FINAL DIFF MANUAL Platelet Estimate NORMAL Platelet Morphology Comment NORMAL Red Cell Morphology Comment NORMAL Blood Urea Nitrogen 28 Creatinine 1.80 Random Glucose 147 Total Protein 6.4 Albumin 2.6 Calcium Level 7.7 Alkaline Phosphatase 64 Aspartate Amino Transf (AST/SGOT) 33 Alanine Aminotransferase (ALT/SGPT) 36 Total Bilirubin 0.4 Sodium Level 141 Potassium Level 3.5 Chloride Level 110 Carbon Dioxide Level 20.1 Anion Gap 11 Estimat Glomerular Filtration Rate 40 Troponin I LESS THAN 0.02 Lactic Acid Level 1.4 Urine Color YELLOW Urine Turbidity CLOUDY Urine pH 6.0 Urine Specific [place] 1.020 Urine Protein 100 Urine Glucose (UA) NEG Urine Ketones NEG Urine Occult Blood MOD Urine Nitrite POS Urine Bilirubin NEG Urine Urobilinogen 0.2 Urine Leukocyte Esterase LARGE Urine RBC 4-9 Urine WBC INNUM Urine Squamous Epithelial Cells 0-5 Urine Bacteria MANY Microscopic Urinalysis Comment CULTURE INDICATED Date/Time Source Procedure Growth Status 04/14/18 20:55 Blood Peripheral Aerobic Blood Culture Pending Received 04/14/18 20:55 Blood Peripheral Anaerobic Blood Culture Pending Received 04/14/18 21:50 Throat Group A Streptococcus Screen Pending Received 04/14/18 21:14 Urine Clean Catch Urine Culture Pending Received Result Diagram: 04/14/18204904/14/182049 Imaging Last Impressions Chest X-Ray 04/14/182055 Signed Impressions: CONCLUSION: No active disease. Calcified granulomata in both lungs. Septic Shock Reassessment Septic shock perfusion: reassessment completed Caprini VTE Risk Assessment Caprini VTE Risk Assessment: Mod/High Risk (score >= 2) Caprini Risk Assessment Model Point Value = 1 Point Value = 2 Point Value = 3 Point Value = 5 Age 41-60 Minor surgery BMI > 25 kg/m2 Swollen legs Varicose veins or History of unexplained or recurrent spontaneous Oral contraceptives or hormone replacement Sepsis (< 1 month) Serious lung disease, including pneumonia (< 1 month) Abnormal pulmonary function Acute myocardial infarction Congestive heart failure (< 1 month) History of inflammatory bowel disease Medical patient at bed rest Age 61-74 Arthroscopic surgery Major open surgery (> 45 min) Laparoscopic surgery (> 45 min) Malignancy Confined to bed (> 72 hours) Immobilizing plaster cast Central venous access Age >= 75 History of VTE Family history of VTE Factor V Leiden Prothrombin [id number] Lupus anticoagulant Anticardiolipin antibodies Elevated serum homocysteine Heparin-induced thrombocytopenia Other congenital or acquired thrombophilia Stroke (< 1 month) Elective arthroplasty Hip, pelvis, or leg fracture Acute spinal cord injury (< 1 month) Prophylaxis Regimen Total Risk Factor Score Risk Level Prophylaxis Regimen 0-1 Low Early ambulation 2 Moderate Order ONE of the following: *Sequential Compression Device (SCD) *Heparin 5000 units SQ BID 3-4 Higher Order ONE of the following medications: *Heparin 5000 units SQ TID *Enoxaparin/Lovenox 40 mg SQ daily (WT < 150 kg, CrCl > 30 mL/min) *Enoxaparin/Lovenox 30 mg SQ daily (WT < 150 kg, CrCl > 10-29 mL/min) *Enoxaparin/Lovenox 30 mg SQ BID (WT < 150 kg, CrCl > 30 mL/min) AND/OR *Sequential Compression Device (SCD) 5 or more Highest Order ONE of the following medications: *Heparin 5000 units SQ TID (Preferred with Epidurals) *Enoxaparin/Lovenox 40 mg SQ daily (WT < 150 kg, CrCl > 30 mL/min) *Enoxaparin/Lovenox 30 mg SQ daily (WT < 150 kg, CrCl > 10-29 mL/min) *Enoxaparin/Lovenox 30 mg SQ BID (WT < 150 kg, CrCl > 30 mL/min) AND *Sequential Compression Device (SCD) Assessment and Plan Problem List: (1) Sepsis ICD Code: A41.9 - Sepsis, unspecified organism Status: Acute (2) Pyelonephritis ICD Code: N12 - Tubulo-interstitial nephritis, not specified as acute or chronic Status: Acute Assessment and Plan This is a pleasant 52-year-old male patient with a known medical history of hyperlipidemia and GERD and enlarged prostate who presented to the ED with complaints of fevers, shakes, chills and lightheadedness. Patient states that last evening he took his temp which was reportedly 101 at home. Sepsis Pyelonephritis - Meets criteria with fever 103.1, tachycardia, tachypnea, leukocytosis 17, with source UTI. Lactic acid 1.4. - Will continue IVF. Was given 1 L NS bolus in ED. - Control pain, [place] PO and Morphine IV as needed per pain scale. - Rapid strep negative. Pending Group A strep screen. Influenza negative. Blood cultures pending. Follow. - CXR reviewed showing no active disease. Abnormal UA rule out UTI Acute kidney injury suspect secondary from above vs dehydration - UA abnormal with presence of leukocyte esterase, WBC and bacteria. Follow urine culture. Continue Ceftriaxone. - Creatinine 1.8 on presentation. No history of kidney disease. Down to 1.4 today. Follow. Continue IVF. - Avoid nephrotoxins. Atypical chest pain likely secondary to rigors vs musculoskeletal etiology - Has resolved. Will trend troponins, less than 0.02, second 0.2. Follow third enzyme. - Serial EKGs ordered. Follow. - Will continue cardiac telemetry. Monitor for any arrhythmias. Hyperlipidemia, chronic: Continue home statin. History of enlarged prostate: Continue home medications. DVT Prophylaxis: SCDs. Physician Certification 2 Midnight Certification Type: Admission for Inpatient Services Order for Inpatient Services The services are ordered in accordance with Medicare regulations or non- Medicare payer requirements, as applicable. In the case of services not specified as inpatient-only, they are appropriately provided as inpatient services in accordance with the 2-midnight benchmark. Estimated LOS (days): 3 3 days is the estimated time the patient will need to remain in the hospital, assuming treatment plan goals are met and no additional complications. Post-Hospital Plan: Not yet determined Sierra Sherwood Apr 15, 2018 07:29
[2018-04-15 07:36] LABS: AUTOMATED NEUTROPHIL # 14.4 TH/MM3 (1.8-7.7); BASOPHIL # 0.1 TH/MM3 (0-0.2); BASOPHIL % 0.3 % (0.0-2.0); EOSINOPHIL # 0.2 TH/MM3 (0-0.4); EOSINOPHIL % 1.2 % (0.0-4.0); HEMATOCRIT 36.8 % (39.0-51.0); HEMOGLOBIN 12.6 GM/DL (13.0-17.0); LYMPH % 10.3 % (9.0-44.0); LYMPHOCYTE # 1.8 TH/MM3 (1.0-4.8); MEAN CELL VOLUME 92.6 FL (80.0-100.0); MEAN CORPUSCULAR HEMOGLOBIN 31.7 PG (27.0-34.0); MEAN CORPUSCULAR HGB CONC 34.3 % (32.0-36.0); MEAN PLATELET VOLUME 8.2 FL (7.0-11.0); MONO % 6.6 % (0.0-8.0); MONOCYTE # 1.2 TH/MM3 (0-0.9); NEUT % 81.6 % (16.0-70.0); PLATELET COUNT 286 TH/MM3 (150-450); RED BLOOD COUNT 3.97 MIL/MM3 (4.50-5.90); RED CELL DISTRIBUTION WIDTH 12.4 % (11.6-17.2); WHITE BLOOD COUNT 17.7 TH/MM3 (4.0-11.0)
[2018-04-15 07:46] LABS: CHLORIDE 113 MEQ/L (98-107); SODIUM (NA) 146 MEQ/L (136-145)
[2018-04-15 07:50] LABS: CALCIUM 7.9 MG/DL (8.5-10.1)
[2018-04-15 07:51] LABS: ALBUMIN 2.5 GM/DL (3.4-5.0); BICARBONATE 24.8 MEQ/L (21.0-32.0); BLOOD UREA NITROGEN 20 MG/DL (7-18); GLUCOSE,RANDOM 116 MG/DL (74-106)
[2018-04-15 07:54] LABS: ALT (GPT) 33 U/L (12-78); AST (GOT) 24 U/L (15-37); GLOMERULAR FILTRATION RATE 54 ML/MIN (>89)
[2018-04-15 07:56] LABS: TOTAL BILIRUBIN ADULT 0.3 MG/DL (0.2-1.0); TOTAL PROTEIN 6.4 GM/DL (6.4-8.2)
[2018-04-15 07:57] LABS: ALKALINE PHOSPHATASE 63 U/L (45-117)
[2018-04-15] MEDS: FENOFIBRATE 145 MG TAB PO SCH (08:01)
[2018-04-15] MEDS: DOCUSATE SODIUM 50 MG/SENNA 8.6 MG TAB PO SCH ×2 (08:02→21:13)
[2018-04-15] MEDS: FINASTERIDE 5 MG TAB PO SCH (08:02)
[2018-04-15] MEDS: SODIUM CHLOR 0.45% 1000 ML INJ 1,000 ML IV SCH ×2 (08:02→16:56)
[2018-04-15] MEDS: SODIUM CHLORIDE 0.9% FLUSH 10 ML FLUSH IV FLUSH SCH ×2 (08:02→21:13)
[2018-04-15 08:47] LABS: TROPONIN I 0.02 NG/ML (0.02-0.05)
[2018-04-15 14:01] LABS: TROPONIN I LESS THAN 0.02 NG/ML (0.02-0.05)
[2018-04-15] MEDS: ACETAMINOPHEN 325 MG TAB PO PRN ×2 (14:49→21:21)
[2018-04-15] MEDS ORDERED: Tadalafil (Cialis) 5 MG) PO SCH (21:00)
[2018-04-15] MEDS: ATORVASTATIN 40 MG TAB PO SCH (21:13)
[2018-04-15] MEDS: cefTRIAXone INJ 2,000 MG in SODIUM CHLORIDE 0.9% INJ 100 ML IV SCH (23:05)
[2018-04-16 00:03] VITALS: BP 131/69; PULSE 74; RESP 20; TEMP 98.1; O2SAT 97
[2018-04-16] MEDS: SODIUM CHLOR 0.45% 1000 ML INJ 1,000 ML IV SCH (03:30)
[2018-04-16] MEDS: ACETAMINOPHEN/HYDROcodone 325 MG/5 MG TAB PO PRN ×2 (03:35→19:50)
[2018-04-16 04:00] VITALS: BP 125/73; PULSE 74; RESP 18; TEMP 96.7; O2SAT 98
[2018-04-16 05:58] LABS: BASOPHIL % 0.4 % (0.0-2.0); EOSINOPHIL # 0.5 TH/MM3 (0-0.4); EOSINOPHIL % 3.7 % (0.0-4.0); HEMATOCRIT 36.8 % (39.0-51.0); HEMOGLOBIN 12.2 GM/DL (13.0-17.0); LYMPH % 16.3 % (9.0-44.0); MEAN CELL VOLUME 93.5 FL (80.0-100.0); MEAN CORPUSCULAR HGB CONC 33.2 % (32.0-36.0); MEAN PLATELET VOLUME 8.4 FL (7.0-11.0); MONO % 14.1 % (0.0-8.0); MONOCYTE # 1.7 TH/MM3 (0-0.9); NEUT % 65.5 % (16.0-70.0); PLATELET COUNT 311 TH/MM3 (150-450); RED BLOOD COUNT 3.94 MIL/MM3 (4.50-5.90); RED CELL DISTRIBUTION WIDTH 12.8 % (11.6-17.2); WHITE BLOOD COUNT 12.2 TH/MM3 (4.0-11.0)
[2018-04-16 06:38] LABS: BICARBONATE 27.4 MEQ/L (21.0-32.0)
[2018-04-16 06:40] LABS: CALCIUM 8.5 MG/DL (8.5-10.1); CREATININE 0.97 MG/DL (0.60-1.30)
--- NOTE | 2018-04-16 07:41 | HHI.PR ---
Subjective Remarks Follow-up UTI. Patient examined, lying in bed much improved. Denies any abdominal pain. Denies any dysuria or further fever, chills, shortness of breath, cough, nausea, vomiting or diarrhea. Tolerating p.o. intake. Ambulating in room. No further chills or rigors. Afebrile overnight. Vital signs stable. Urine culture positive for ESBL/E coli. Objective Vitals Vital Signs Date Time Temp Pulse Resp B/P (MAP) Pulse Ox O2 Delivery O2 Flow Rate FiO2 04/16/18 04:00 96.7 74 18 125/73 (90) 98 04/16/18 00:03 98.1 74 20 131/69 (89) 97 04/15/18 20:50 97.8 79 18 132/74 (93) 99 04/15/18 20:00 81 04/15/18 16:00 97.6 76 16 122/64 (83) 97 04/15/18 12:00 97.5 80 18 136/78 (97) 97 04/15/18 08:00 96.2 82 18 136/75 (95) 97 I/O 04/15/18 04/15/18 04/15/18 04/16/18 04/16/18 04/16/18 07:00 15:00 23:00 07:00 15:00 23:00 Intake Total 340 ml 748 ml 1850 ml 2622 ml Output Total 200 ml 2000 ml 1200 ml Balance 140 ml 748 ml -150 ml 1422 ml Intake Oral 240 ml 900 ml 1200 ml IV Total 100 ml 748 ml 950 ml 1422 ml Output Urine Total 200 ml 2000 ml 1200 ml # Voids 3 1 # Bowel Movements 0 Result Diagram: 04/16/18 0508 04/16/18 0508 Imaging Last Impressions Chest X-Ray 04/14/182055 Signed Impressions: CONCLUSION: No active disease. Calcified granulomata in both lungs. Objective Remarks GENERAL: Well-developed, well-nourished patient in [facility]. SKIN: Warm and dry. No rash. HEAD: Normocephalic. Atraumatic. EYES: Pupils equal and round. No scleral icterus. No injection or drainage. ENT: No nasal bleeding or discharge. Mucous membranes pink and moist. NECK: Supple. Trachea midline. CARDIOVASCULAR: Regular rate and rhythm. S1, S2 noted. No murmur appreciated. Mild reproducible midsternal CP. RESPIRATORY: No accessory muscle use. Clear to auscultation. Breath sounds equal bilaterally. GASTROINTESTINAL: Abdomen soft, non-tender, nondistended. Normoactive bowel sounds x4. MUSCULOSKELETAL: No obvious deformities. Extremities without clubbing, cyanosis , or edema. NEUROLOGICAL: Awake and alert. No obvious cranial nerve deficits. Motor grossly within normal limits. 5/5 muscle strength in bilateral upper and lower extremities. Normal speech. PSYCHIATRIC: Appropriate mood and affect; insight and judgment normal. A/P Problem List: (1) Sepsis ICD Code: A41.9 - Sepsis, unspecified organism Status: Acute (2) Pyelonephritis ICD Code: N12 - Tubulo-interstitial nephritis, not specified as acute or chronic Status: Acute Assessment and Plan This is a pleasant 52-year-old male patient with a known medical history of hyperlipidemia and GERD and enlarged prostate who presented to the ED with complaints of fevers, shakes, chills and lightheadedness. Patient states that last evening he took his temp which was reportedly 101 at home. Sepsis Pyelonephritis Complicated urinary tract infection, ESBL/E. coli Acute kidney injury suspect secondary from above vs dehydration. Resolved. - Met criteria with fever 103.1, tachycardia, tachypnea, leukocytosis 17, with source UTI. Lactic acid, normal 1.4. - Was given 1 L NS bolus in ED. Maintenance IVF dc'd. Tolerating PO intake. - Control pain, [place] PO and Morphine IV as needed per pain scale. - Rapid strep negative. Pending Group A strep screen. Influenza negative. Blood cultures negative to date. - CXR reviewed showing no active disease. Awaiting Abdominal/pelvis CT. - Urine culture growing E coli/ESBL. Continue Ceftriaxone. Add Zosyn. Consult ID for further recommendations. - Creatinine 1.8 on presentation. No history of kidney disease. Down to 0.97. Avoid nephrotoxins. Atypical chest pain likely secondary to rigors vs musculoskeletal etiology. Resolved. - Serial troponins flat. EKG reviewed showing no ST changes, NSR, controlled heart rate. - Cardiac telemetry overnight reviewed, no acute events. Hyperlipidemia, chronic: Continue home statin. History of enlarged prostate: Continue home medications. DVT Prophylaxis: SCDs. Discharge Planning Awaiting clinical improvement, ID recs. 24-48 hours for discharge. Sierra Sherwood Apr 16, 2018 07:41
[2018-04-16 08:00] VITALS: BP 155/85; PULSE 73; RESP 20; TEMP 97.3; O2SAT 99
[2018-04-16] MEDS: FINASTERIDE 5 MG TAB PO SCH (09:00)
[2018-04-16] MEDS: SODIUM CHLORIDE 0.9% FLUSH 10 ML FLUSH IV FLUSH SCH ×2 (09:00→19:51)
[2018-04-16] MEDS: FENOFIBRATE 145 MG TAB PO SCH (09:00)
[2018-04-16] MEDS: DOCUSATE SODIUM 50 MG/SENNA 8.6 MG TAB PO SCH ×2 (09:00→19:51)
[2018-04-16 12:00] VITALS: BP 156/89; PULSE 80; RESP 22; TEMP 98.5; O2SAT 98
[2018-04-16] MEDS: PIPERACIL-TAZO 4.5 GM PREMIX 100 ML IV SCH ×2 (14:17→19:52)
[2018-04-16] MEDS ORDERED: HYDR-3516 PO (14:19)
[2018-04-16] MEDS ORDERED: AUGM875T3 PO (14:20)
[2018-04-16 16:00] VITALS: BP 160/82; PULSE 79; RESP 22; TEMP 99.1; O2SAT 97
[2018-04-16] MEDS ORDERED: IOHEXOL 350 MG/ML 10 ML VIAL (for RAD DIAG) IVCONTRAST ONE (17:03)
--- NOTE | 2018-04-16 17:12 | HHI.DCPOC ---
Discharge Care Plan Diagnosis: (1) ESBL (extended spectrum beta-lactamase) producing bacteria infection (2) Sepsis (3) Pyelonephritis Goals to Promote Your Health * To prevent worsening of your condition and complications * To maintain your health at the optimal level Directions to Meet Your Goals Take your medications as prescribed Follow your dietary instruction Follow activity as directed Keep your appointments as scheduled Take your immunizations and boosters as scheduled If your symptoms worsen call your PCP, if no PCP go to Urgent Care Center or Emergency Room Smoking is Dangerous to Your Health. Avoid second hand smoke Call the 24-hour hour crisis hotline for domestic abuse at Sierra Sherwood Apr 16, 2018 17:12
--- NOTE | 2018-04-16 17:26 | RADRPT ---
EXAM DATE: 04/16/2018 5:05 PM EDT AGE/SEX: 52 years / Male INDICATIONS: Fever, chills. Lower back pain, and abnormal urinalysis. Evaluate for pyelonephritis. CLINICAL DATA: This is the patient's initial encounter. Patient reports that signs and symptoms have been present for 1 day and indicates a pain score of 0/10. MEDICAL/SURGICAL HISTORY: Gastroesophageal reflux disease. Renal calculi. None. ORAL CONTRAST: No oral contrast ingested. RADIATION DOSE: 19.19 CTDI (mGy) COMPARISON: No prior exams available for comparison. TECHNIQUE: Multiple contiguous axial images were obtained through the abdomen and pelvis following b olus infusion of 95 ml Omnipaque 350 (iohexol) nonionic water-soluble contrast as a single exam dos e. No oral contrast ingested. Using automated exposure control and adjustment of the mA and/or kV ac cording to patient size, the radiation dose was kept as low as reasonably achievable to obtain optima l diagnostic quality images. FINDINGS: Lower Lungs: There is a calcified granuloma at the posterior medial right lower lobe. There is minima l suspected dependent atelectasis at the lung bases. There is a minimal amount of right pleural fluid present. Liver: There is decreased attenuation seen throughout the liver. No focal hepatic lesions are seen. T he gallbladder is unremarkable. Spleen: Homogeneous density without enlargement. Pancreas: Unremarkable without mass or calcification. Kidneys: There is mild asymmetric enhancement with slight delayed enhancement at the right kidney. T here is a 1 cm stone seen in the right renal pelvis. This is not in the UPJ. There is moderate dilata tion of the collecting system on the right. There is some dilatation of the mid right ureter at the l evel the pelvic inlet. The surrounding induration in the fat around the mid right ureter pelvic inlet likely related to postinflammatory change. A more distal stone is not seen. There is some enhancemen t of the lining of the right renal pelvis. There is a 0.6 cm nonobstructing stone seen in the inferio r left collecting system. The left collecting system is not dilated. The left ureter is normal. Adrenal Glands: Unremarkable. Aorta: The aorta and proximal iliac vessels are grossly unremarkable without aneurysmal dilation. Bowel/Mesentery: Scattered colonic diverticula are seen in the sigmoid region without inflammatory c hange. There appears to be a very short appendix is seen. There is normal. Abdominal Wall: Intact. Retroperitoneum: No evidence of adenopathy in the retrocrural, para-aortic, or deep pelvic regions. Bladder: Contours are smooth. Reproductive Organs: The prostate is enlarged. Calcifications are seen at the prostate. Inguinal: The inguinal region is unremarkable without evidence of adenopathy. Bony Structures: Unremarkable. CONCLUSION: 1. Delayed enhancement of the right kidney with moderate dilatation of the right collecting system a nd a 1 cm stone at the right renal pelvis concerning for intermittent obstruction versus pyelonephrit is. There is some enhancement of the epithelial lining of the right renal pelvis. There also appears to be some enhancement and mild dilatation of the mid right ureter with surrounding inflammatory singh ge likely from inflammatory/infectious process. A passed stone could create a similar appearance. 2. The prostate appears prominent. 3. Scattered sigmoid colon diverticula. 4. Hepatic steatosis. Electronically signed by: Dom Almonte MD 04/16/2018 5:25 PM EDT
[2018-04-16] MEDS: ATORVASTATIN 40 MG TAB PO SCH (19:51)
[2018-04-16 20:00] VITALS: BP 159/82; PULSE 86; RESP 20; TEMP 99.5; O2SAT 97
[2018-04-16] MEDS: cefTRIAXone INJ 2,000 MG in SODIUM CHLORIDE 0.9% INJ 100 ML IV SCH (22:58)
[2018-04-16] MEDS: SODIUM CHLORIDE 0.9% FLUSH 10 ML FLUSH IV FLUSH PRN (22:59)
--- NOTE | 2018-04-16 23:14 | EKG ---
Date Performed: 04/15/2018 Time Performed: 13:48:09 PTAGE: 52 years EKG: Sinus rhythm MARKED LEFT AXIS DEVIATION ABNORMAL ECG NO PREVIOUS TRACING DOCTOR: Errol Gordon Interpretating Date/Time 04/16/2018 23:01:55
[2018-04-17] VITALS: BP 170/85; PULSE 83; RESP 20; TEMP 97.9; O2SAT 98
[2018-04-17] MEDS: SODIUM CHLORIDE 0.9% FLUSH 10 ML FLUSH IV FLUSH PRN (01:35)
[2018-04-17] MEDS: PIPERACIL-TAZO 4.5 GM PREMIX 100 ML IV SCH ×2 (01:35→08:06)
[2018-04-17 04:00] VITALS: BP 159/92; PULSE 94; RESP 20; TEMP 98.8; O2SAT 95
[2018-04-17] MEDS: ACETAMINOPHEN/HYDROcodone 325 MG/5 MG TAB PO PRN (05:21)
[2018-04-17] MEDS: FENOFIBRATE 145 MG TAB PO SCH (08:05)
[2018-04-17] MEDS: SODIUM CHLORIDE 0.9% FLUSH 10 ML FLUSH IV FLUSH SCH (08:05)
[2018-04-17] MEDS: FINASTERIDE 5 MG TAB PO SCH (08:05)
[2018-04-17] MEDS: DOCUSATE SODIUM 50 MG/SENNA 8.6 MG TAB PO SCH (08:05)
[2018-04-17 09:30] VITALS: BP 154/84; PULSE 87; RESP 18; TEMP 98.3; O2SAT 97
--- NOTE | 2018-04-17 11:39 | HHI.DS ---
Discharge Summary Admission Date Apr 15, 2018 at 00:09 Discharge Date: Apr 17, 2018 Admitting Diagnosis Sepsis, pyelonephritis (1) Sepsis ICD Code: A41.9 - Sepsis, unspecified organism Status: Acute (2) Pyelonephritis ICD Code: N12 - Tubulo-interstitial nephritis, not specified as acute or chronic Status: Acute Procedures None Brief History - From Admission This is a pleasant 52-year-old male patient with a known medical history of hyperlipidemia and GERD and enlarged prostate who presented to the ED with complaints of fevers, shakes, chills and lightheadedness. Patient states that last evening he took his temp which was reportedly 101 at home. He does admit to associated poor appetite. He states that he felt intermittent hot and cold with rigors as well as associated chest tightness characterized as feeling like "needles"in his midsternal chest, these lasted a couple minutes and then went away. He denies any recent cough or shortness of breath. Denies any bowel pain , nausea, vomiting, diarrhea or dysuria. He does admit to a sore throat. Denies any recent antibiotic use. Denies any sick contacts. Patient did undergo a cardiac stress test 5 years ago which was reportedly negative. PCP is Dr. Viera. Denies any changes to his medicines. Patient is from [place] , moved here in September 2016, prior to this he was seeing a urologist for enlarged prostate as well as history of kidney stones. He has not established with a urologist in town here. Last report of kidney stone was last year and passed on his own. CBC/BMP: 04/16/18 0508 04/16/18 0508 Significant Findings Laboratory Tests Test 04/14/18 20:50 04/14/18 20:58 04/14/18 21:14 04/15/18 07:19 Red Blood Count 3.90 MIL/MM3 (4.50-5.90) 3.97 MIL/MM3 (4.50-5.90) Hemoglobin 12.3 GM/DL (13.0-17.0) 12.6 GM/DL (13.0-17.0) Hematocrit 35.0 % (39.0-51.0) 36.8 % (39.0-51.0) Neutrophils % (Manual) 87 % (16-70) Lymphocytes % 8 % (9-44) Neutrophils # (Manual) 8.5 TH/MM3 (1.8-7.7) Blood Urea Nitrogen 28 MG/DL (7-18) 20 MG/DL (7-18) Creatinine 1.80 MG/DL (0.60-1.30) 1.40 MG/DL (0.60-1.30) Random Glucose 147 MG/DL (74-106) 116 MG/DL (74-106) Albumin 2.6 GM/DL (3.4-5.0) 2.5 GM/DL (3.4-5.0) Calcium Level 7.7 MG/DL (8.5-10.1) 7.9 MG/DL (8.5-10.1) Chloride Level 110 MEQ/L (98-107) 113 MEQ/L (98-107) Carbon Dioxide Level 20.1 MEQ/L (21.0-32.0) Estimat Glomerular Filtration Rate 40 ML/MIN (>89) 54 ML/MIN (>89) Troponin I LESS THAN 0.02 NG/ML Urine Turbidity CLOUDY (CLEAR) Urine Protein 100 mg/dL (NEG-TRACE) Urine Occult Blood MOD (NEG) Urine Nitrite POS (NEG) Urine Leukocyte Esterase LARGE (NEG) Urine RBC 4-9 /hpf (0-3) Urine WBC INNUM /hpf (0-5) Urine Bacteria MANY /hpf (NONE) White Blood Count 17.7 TH/MM3 (4.0-11.0) Neutrophils (%) (Auto) 81.6 % (16.0-70.0) Neutrophils # (Auto) 14.4 TH/MM3 (1.8-7.7) Monocytes # (Auto) 1.2 TH/MM3 (0-0.9) Sodium Level 146 MEQ/L (136-145) Test 04/15/18 07:52 04/15/18 13:18 04/16/18 05:08 Troponin I LESS THAN 0.02 NG/ML White Blood Count 12.2 TH/MM3 (4.0-11.0) Red Blood Count 3.94 MIL/MM3 (4.50-5.90) Hemoglobin 12.2 GM/DL (13.0-17.0) Hematocrit 36.8 % (39.0-51.0) Monocytes (%) (Auto) 14.1 % (0.0-8.0) Neutrophils # (Auto) 8.0 TH/MM3 (1.8-7.7) Monocytes # (Auto) 1.7 TH/MM3 (0-0.9) Eosinophils # (Auto) 0.5 TH/MM3 (0-0.4) Sodium Level 146 MEQ/L (136-145) Chloride Level 111 MEQ/L (98-107) Estimat Glomerular Filtration Rate 82 ML/MIN (>89) Imaging Last Impressions Abdomen/Pelvis CT 04/16/18 0000 Signed Impressions: CONCLUSION: 1. Delayed enhancement of the right kidney with moderate dilatation of the rig ht collecting system and a 1 cm stone at the right renal pelvis concerning for intermittent obstruction versus pyelonephritis. There is some enhancement of th e epithelial lining of the right renal pelvis. There also appears to be some en hancement and mild dilatation of the mid right ureter with surrounding inflamma tory change likely from inflammatory/infectious process. A passed stone could c reate a similar appearance. 2. The prostate appears prominent. 3. Scattered sigmoid colon diverticula. 4. Hepatic steatosis. Chest X-Ray 04/14/182055 Signed Impressions: CONCLUSION: No active disease. Calcified granulomata in both lungs. PE at Discharge GENERAL: Well-developed, well-nourished patient in [facility]. SKIN: Warm and dry. No rash. HEAD: Normocephalic. Atraumatic. EYES: Pupils equal and round. No scleral icterus. No injection or drainage. ENT: No nasal bleeding or discharge. Mucous membranes pink and moist. NECK: Supple. Trachea midline. CARDIOVASCULAR: Regular rate and rhythm. S1, S2 noted. No murmur appreciated. Mild reproducible midsternal CP. RESPIRATORY: No accessory muscle use. Clear to auscultation. Breath sounds equal bilaterally. GASTROINTESTINAL: Abdomen soft, non-tender, nondistended. Normoactive bowel sounds x4. MUSCULOSKELETAL: No obvious deformities. Extremities without clubbing, cyanosis , or edema. NEUROLOGICAL: Awake and alert. No obvious cranial nerve deficits. Motor grossly within normal limits. 5/5 muscle strength in bilateral upper and lower extremities. Normal speech. PSYCHIATRIC: Appropriate mood and affect; insight and judgment normal. Hospital Course 52-year-old male with known history of hyperlipidemia, gastroesophageal reflux, benign prostatic hypertrophy who presented the hospital because of fever, chills , lightheadedness. Patient had workup done and found to have sepsis by criteria with fever, tachycardia, tachypnea, leukocytosis with source of urinary tract infection. Patient with CT scan indicating possible intermittent obstruction versus pyelonephritis. Patient was admitted to the hospital with empirical antibiotics Rocephin and Zosyn. Culture was performed which indicated E. coli with ESBL positive. Patient tolerated treatment well and is no longer febrile. White count has significantly improved. Patient has clinically improved. Further workup was done by [facility], who contacted infectious disease and reviewed culture and appropriate antibiotic treatment which they recommended Augmentin. She also contacted urologist, who recommended that there may be some possible hydronephrosis but most likely related to infection. They recommended keeping the patient overnight and discharge him home with office follow-up. Patient is doing well this morning. Denies any new complaints. He is very eager to go home. Will discharge accordingly. Pt Condition on Discharge: Stable Discharge Disposition: Discharge Home Discharge Time: > 30 minutes Discharge Instructions DIET: Follow Instructions for: As Tolerated, No Restrictions Activities you can perform: Regular-No Restrictions Follow up Referrals: Infectious Disease - 1 Week with JP PCP Follow-up - 1 Week Urology - 2-3 Days with Salvatore Ashton DO New Medications: Amoxicillin-Clavulanate (Augmentin) 875-125 Mg Tab 1 TAB PO BID for Infection for 10 Days, #20 TAB 0 Refills Hydrocodone/Acetaminophen (Hydrocodone-Acetamin 5-325 mg) 5 Mg-325 Mg Tablet 1 TAB PO Q4H PRN for PAIN SCALE 3 TO 5 for 2 Days, #12 TAB Continued Medications: Aspirin (Aspirin Low Dose) 81 Mg Chew 81 MG CHEW DAILY, TAB 0 Refills Atorvastatin (Atorvastatin) 40 Mg Tab 40 MG PO HS for Cholesterol Management, #30 TAB 0 Refills Fenofibrate (Fenofibrate) 145 Mg Tab 145 MG PO DAILY, #30 TAB 0 Refills Finasteride (Finasteride) 5 Mg Tab 5 MG PO DAILY for Manage Prostate Problems, #30 TAB 0 Refills Do not crush. Tadalafil (Cialis) 5 Mg Tab 5 MG PO HS, TAB 0 Refills Do not exceed 1 dose/day. Shade Jorge Apr 17, 2018 11:39
== END 2018-04-17 13:33 | disposition home or self-care (01) | DRG 872 ==
LOC: PHEFT 20:26 → PHEDA 04-15 00:09 → PH3A 04-15 00:58
PROVIDERS: ADMIT Hospitalist; ATTEND Hospitalist
DX: A41.51 Sepsis due to Escherichia coli [E. coli] (principal); N17.9 Acute kidney failure, unspecified; N12 Tubulo-interstitial nephritis, not specified as acute or chronic; N20.0 Calculus of kidney; K21.9 Gastro-esophageal reflux disease without esophagitis; N40.0 Benign prostatic hyperplasia without lower urinary tract symptoms; E78.5 Hyperlipidemia, unspecified; R07.89 Other chest pain; Z87.442 Personal history of urinary calculi; Z87.891 Personal history of nicotine dependence
CPT/HCPCS: 71046; 74177; 80048; 80053; 81001; 82550; 82552; 83605; 84484; 85007; 85025; 85027; 87040; 87077; 87081; 87086; 87186; 87804; 87880; 93005; 96360; J0696; J2270; J2543; J7030; Q9967

== ENCOUNTER → 2018-04-25 | Day surgery (SDC) | payer OTHER ==
[~2018-04-25] VITALS: Ht 170.2 cm; Wt 88.2 kg
[~2018-04-25] MED LIST changes: +AUGM875T3 PO; -BACT800T5 PO; +CHLORHEXIDINE GLUCONATE 2 % 1 PACK (2 CLOTHS) TOPICAL PRN; +CODCAP4 PO; +ECHI400C2 PO; +FERR325T18 PO; -FINA5TAB2 PO; +HYDR-3516 PO; +LACTATED RINGER'S 1000 ML IV PRN; +LIDOCAINE HCL 1% PF 5 ML SYRINGE OTHER ONE; +LUTE40CA2 PO; +METOPROLOL TARTRATE 25 MG TAB PO PRN; +MIDAZOLAM HCL 2 MG/2 ML VIAL ONE; +MULT-65 PO; +OMEGCAP PO; -OMEP20TA93 PO; +OMEP40CA2 PO; -PERC10TA27 PO; +POVIDONE IODINE 5% (ANTISEPSIS KIT) 4 APPLICATIONS EACH NARE PRN; +PROPOFOL 200 MG/20 ML AMP IV ONE; +SODIUM CHLORID 0.9% 500 ML IV PRN; +TAMS0.4C4 PO; +ceFAZolin 1,000 MG/NS 100 ML IV SCH
--- NOTE | 2018-04-25 09:46 | RADRPT ---
EXAM DATE: 04/25/2018 9:41 AM EDT AGE/SEX: 52 years / Male INDICATIONS: Pre op ESWL. Right side kidney stone. CLINICAL DATA: This is the patient's initial encounter. Patient reports that signs and symptoms have been present for 1 day and indicates a pain score of 3/10. MEDICAL/SURGICAL HISTORY: Renal calculi. None. COMPARISON: [facility], CT ABDOMEN & PELVIS W CONTRAST, 04/16/2018. . FINDINGS: 10 mm calcified renal calculus in the right renal pelvis. 5 mm calcified density in the inferior pole the left kidney. No additional radiopaque calculi corresponding to the course of the ureters and kid neys. The abdominal bowel gas pattern is normal. The osseous structures are unremarkable. CONCLUSION: 1. 10 mm calcified renal calculus in the right renal pelvis. 2. 5 mm left inferior pole renal calculus. Electronically signed by: Jay Navas MD 04/25/2018 9:45 AM EDT
--- NOTE | 2018-04-25 11:21 | PD.OP ---
Operative Report Date of Surgery: Apr 25, 2018 Preoperative Diagnosis: Right renal stone Postoperative Diagnosis: Same Procedure: Right extracorporeal shockwave lithotripsy Anesthesia: MAC Surgeon: Salvatore Ashton Truck Terminal Manager(s): None Resident Surgeon: None Operation and Findings: 52-year-old male with findings of a 8-9 mm right renal calculus. Patient elected to undergo right extrapleural shockwave lithotripsy. Risk and benefits were discussed preoperatively the patient was willing to proceed. Patient was brought to the operating room and identified by myself as Oksana Duran. He was placed in the supine position on the operating table. He received preprocedure antibiotics and MAC anesthesia was administered. Under fluoroscopic and ultrasound imaging the stone was visualized. S wall therapy commenced with the patient receiving a total of 2500 shocks. Good fragmentation of the stone was visualized. The patient tolerated procedure well and was awoken and transferred recovery in stable condition. He will follow-up in the office in 2 weeks and obtain a KUB x-ray prior. Salvatore Ashton DO Apr 25, 2018 11:21
[2018-04-25 12:05] VITALS: BP 135/81; PULSE 83; RESP 20; TEMP 98; O2SAT 98
== END | disposition home or self-care (01) ==
LOC: HSDC 08:19
PROVIDERS: ATTEND Urology
DX: N20.0 Calculus of kidney (principal); N12 Tubulo-interstitial nephritis, not specified as acute or chronic; N40.1 Benign prostatic hyperplasia with lower urinary tract symptoms; K21.9 Gastro-esophageal reflux disease without esophagitis; E78.00 Pure hypercholesterolemia, unspecified; M19.90 Unspecified osteoarthritis, unspecified site; Z87.891 Personal history of nicotine dependence
CPT/HCPCS: 00872; 50590; 74018; J0690; J2250; J3010; J7120